=== PATIENT | female | born 1990 | race Caucasian/White ===

== ENCOUNTER 2020-10-06 17:35 | Inpatient (IN) | payer OTHER ==
[2020-10-06 18:27] LABS: Appearance,Urine Clear (Clear); Bilirubin,Urine Negative (Negative); Blood,Urine Moderate (Negative); Color,Urine Colorless; Glucose,Urine (UA) Negative (Negative); Ketones,Urine Negative (Negative); Leukocyte Esterase,Urine Small (Negative); Mucus,Urine Rare /hpf; Nitrite,Urine Negative (Negative); PH, Urine 6.5 (5.0-8.0); Protein,Urine Trace (Negative); RBC,Urine 1 /hpf (0-5); Specific Gravity,Urine 1.003 (1.001-1.035); Squamous Epithelial Cell,Urine 3 /hpf (0-4); Urobilinogen,Urine <2.0 mg/dL (<2.0); WBC,Urine 1 /hpf (0-5)
[2020-10-06 18:39] LABS: Creatinine,Urine Random 14.6 mg/dL; Protein/Creatinine Ratio,Urine 2.808
[2020-10-06] MEDS ORDERED: TERBUTALINE 1 MG/ML VIAL SQ PRN (18:54)
[2020-10-06] MEDS ORDERED: CARBOPROST TROMETHAMINE 250 MCG/ML 1 ML AMP IM PRN (18:54)
[2020-10-06] MEDS ORDERED: METHYLERGONOVINE 0.2 MG/ML 1 ML AMP IM PRN (18:54)
[2020-10-06] MEDS ORDERED: LIDOCAINE 0.5% (PF) 5 MG/ML (50 ML SDV) SQ PRN (18:54)
[2020-10-06] MEDS ORDERED: OXYTOCIN 10 UNIT/ML 1 ML VIAL IM PRN (18:54)
[2020-10-06] MEDS ORDERED: OXYTOCIN 30 UNITS/500 ML NS 30 UNIT in SALINE 1 500ML.BAG IV SCH (19:00)
[2020-10-06 19:06] LABS: Basophils % (A) 0 %; Eosinophils # (A) 0.1 k/uL (0-0.7); Eosinophils % (A) 2 %; HCT 36.9 % (34.0-46.0); HGB 12.9 gm/dL (11.4-16.0); Lymphocytes # (A) 1.9 k/uL (1.0-4.8); Lymphocytes % (A) 21 %; MCH 32.4 pg (25.0-35.0); MCHC 35.1 g/dL (31.0-37.0); MCV 92.3 fL (80.0-100.0); Mean Platelet Volume 8.2; Monocytes # (A) 0.5 k/uL (0-1.0); Monocytes % (A) 6 %; Neutrophils # (A) 6.5 k/uL (1.3-7.7); Neutrophils % (A) 69 %; Platelet Count 186 k/uL (150-450); RDW 13.4 % (11.5-15.5); WBC 9.4 k/uL (3.8-10.6)
[2020-10-06 19:11] LABS: ALT 16 U/L (4-34); AST 26 U/L (14-36); African American GFR (CKD) >90 (>60 ml/min/1.73 sqM); Blood Urea Nitrogen 11 mg/dL (7-17); LDH 603 U/L (313-618); Non-African American GFR(CKD) >90 (>60 ml/min/1.73 sqM); Uric Acid 6.1 mg/dL (3.7-7.4)
--- NOTE | 2020-10-06 19:45 | US ---
EXAMINATION TYPE: US OB limited DATE OF EXAM: 10/06/2020 COMPARISON: NONE CLINICAL HISTORY: PIH. PIH. LUAN and presentation only. . EXAM PERFORMED: Transabdominal (TA) GESTATIONAL AGE / DATING Physician Established: (36 weeks/2 days) EDC: 11/01/2020 No growth performed on today?s study per ordering physician SURVEY LUAN: 11.68 cm Normal Ultrasound evidence of premature rupture of membranes? No PRESENTATION: Vertex LIE: Longitudinal HEART RATE: 142 bpm RHYTHM: Normal Single live intrauterine gestation. Calculated amniotic fluid index is within normal limits. Normal c ephalad presentation noted. IMPRESSION: As above.
[2020-10-07] MEDS: LACTATED RINGERS 1,000 ML IV SCH ×2 (00:05→08:08)
[2020-10-07] MEDS: CLINDAMYCIN 900 MG in DEXTROSE 5% IN WATER 50 ML IVPB SCH ×6 (00:05→17:06)
--- NOTE | 2020-10-07 08:33 | P.HPOB ---
History of Present Illness H&P Date: 10/07/20 Chief Complaint: IUP @ 36 4/7 weeks This is a 30-year-old 1 para 0 at 36-4/7 weeks that presented to the office yesterday with noted elevated blood pressures 140s over high 90s, with increased through plus lower cavity swelling. Patient did deny headaches or abdominal pain. She had a prior elevated blood pressure 2 weeks prior 140s over 90s. Patient had preeclampsia labs at that time that were negative. Patient was sent to the hospital where her elevated blood pressures remained 140s 150s over 90s. Patient underwent preeclampsia labs once again which were normal a spot protein creatinine ratio was 2.8, significantly elevated. Patient has been receiving routine care, and is dated by a first trimester ultrasound that was done at the care center. Her blood type is A+, rubella status immune, RPR nonreactive, B surface antigen negative, HIV negative. Review of Systems Constitutional: Denies chills, Denies fatigue, Denies fever Ears, nose, mouth and throat: Denies headache Cardiovascular: Reports leg edema Respiratory: Denies dyspnea Gastrointestinal: Denies nausea, Denies vomiting Genitourinary: Reports Past Medical History Past Medical History: No Reported History History of Any Multi-Drug Resistant Organisms: None Reported Past Surgical History: Orthopedic Surgery Additional Past Surgical History / Comment(s): left lower leg surgery 2011 Past Anesthesia/Blood Transfusion Reactions: No Reported Reaction Past Psychological History: Depression Smoking Status: Never smoker Past Alcohol Use History: None Reported Past Drug Use History: Marijuana Additional Drug Use History / Comment(s): before - Past Family History Mother Family Medical History: No Reported History Medications and Allergies Home Medications Medication Instructions Recorded Confirmed Type Pnv No.95/Ferrous Fum/Folic AC 1 each PO DAILY 10/06/20 10/06/20 History [ Multivitamin Tablet] Allergies Allergy/AdvReac Type Severity Reaction Status Date / Time latex Allergy Rash/Hives Verified 10/06/20 17:43 Penicillins Allergy Rash/Hives Verified 10/06/20 17:43 codeine AdvReac Nausea & Verified 10/06/20 17:43 Vomiting Exam Osteopathic Statement: *. No significant issues noted on an osteopathic str uctural exam other than those noted in the History and Physical/Consult. 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 Results Result Diagrams: 10/06/20 18:43 10/06/20 18:43 Abnormal Lab Results - Last 24 Hours (Table) 10/06/20 10/06/20 Range/Units 17:41 17:41 Urine Protein Trace H (Negative) Urine Blood Moderate H (Negative) Ur Leukocyte Esterase Small H (Negative) Urine Mucus Rare H (None) /hpf U Random Total Protein 42 H (<12) mg/dL Assessment and Plan (1) 36 weeks gestation of Current Visit: Yes Status: Acute Code(s): Z3A.36 - 36 WEEKS GESTATION OF SNOMED Code(s): 44445077 (2) Preeclampsia Current Visit: Yes Status: Acute Code(s): O14.90 - UNSPECIFIED PRE-ECLAM PSIA, UNSPECIFIED TRIMESTER SNOMED Code(s): 947445205 Plan: This 30-year-old at 36-4/7 weeks presented to labor and delivery from the office with noted elevated blood pressures and increased lower extremity swelling. Preeclampsia labs were noted to be negative although uric acid was elevated from previous lab draw. Spot protein urine creatinine ratio was significantly elevated. Patient was admitted last night for planned induction of labor. Blood pressures remained stable through the night 140s over 90s. Pitocin induction of labor was begun around 5 AM. We'll monitor blood pressures closely, and anticipate spontaneous vaginal delivery.
[2020-10-07] MEDS ORDERED: SODIUM CHLORIDE 0.9% 100 ML BAG ONE (11:16)
[2020-10-07] MEDS ORDERED: ROPIVACAINE 5MG/ML 20ML VIAL ONE (11:16)
[2020-10-07] MEDS ORDERED: fentaNYL (PF) 50 MCG/ML 5 ML AMP ONE (11:16)
[2020-10-07] MEDS ORDERED: ROPIVACAINE 100 MG, fentaNYL (PF) 200 MCG in SODIUM CHLORIDE 0.9% 76 ML EPIDURAL ONE (11:36)
[2020-10-07] MEDS ORDERED: ZOLPIDEM 5 MG TAB PO PRN (13:52)
[2020-10-07] MEDS ORDERED: HYDROcodone/APAP 5-325MG 1 EACH TAB PO PRN (13:52)
[2020-10-07] MEDS ORDERED: BENZOCAINE/MENTHOL SPRAY 1 GM/SPRAY AEROSOL TOPICAL PRN (13:52)
[2020-10-07] MEDS ORDERED: diphenhydrAMINE 25 MG CAP PO PRN (13:52)
[2020-10-07] MEDS ORDERED: diphenhydrAMINE 50 MG CAP PO PRN (13:52)
[2020-10-07] MEDS ORDERED: LANOLIN CREAM 5 GM TUBE TOPICAL PRN (13:52)
[2020-10-07] MEDS ORDERED: diphenhydrAMINE 50 MG/ML 1 ML VIAL IVP PRN ×2 (13:52)
[2020-10-07] MEDS ORDERED: HYDROCORTISONE 2.5% RECTAL CREAM 30 GM TUBE RECTAL PRN (13:52)
[2020-10-07] MEDS ORDERED: SIMETHICONE 80 MG CHEWABLE PO PRN (13:52)
--- NOTE | 2020-10-07 13:56 | P.PROBDLV ---
Vaginal Delivery Note - . Vaginal Delivery Note: This is a 30-year-old 1 para 0 that presented to labor and delivery from the office yesterday with noted elevated pressures at 36-3/7 weeks. Patient had noted increased lower extremity swelling, preeclampsia labs were done and essentially normal with the exception of an elevated uric acid at 6, urine protein creatinine ratio was significantly elevated in addition. Patient was admitted to labor and delivery. Pitocin induction of labor was begun this morning as her blood pressures were stable through the night and she did sleep well. Pitocin induction was begun per hospital protocol. Patient was noted to be having regular contractions therefore amniotomy was performed and clear fluid was obtained. Patient progressed through labor eventually becoming uncomfortable and requesting epidural placement. Epidural was placed without difficulty by the anesthesia department. Patient then progressed to complete began pushing and had a normal spontaneous vaginal delivery of a viable male at 1330, weight of 6 lbs. 13 oz. and Apgars of 9 and 10 at one and 5 minutes respectively. After two-minute delayed the umbilical cord was doubly clamped and cut and the infant was handed off to the maternal abdomen. A spontaneous cry was noted at . On inspection the patient's vaginal vault a second-degree midline laceration was noted. This was repaired in the usual fashion with 3-0 Rapide. Patient tolerated repair well and hemostasis was appre ciated. Uterus was noted be firm and below the umbilicus after the repair. Estimated blood loss 200 mL. All counts were noted to be correct 2 at the end the procedure. Patient and tolerated delivery well and are resting complete.
[2020-10-07] MEDS ORDERED: OXYTOCIN 20 UNITS/1000 ML NS 1,000 ML IV SCH (14:00)
[2020-10-07] MEDS: IBUPROFEN 600 MG TAB PO PRN (17:07)
[2020-10-07] MEDS: SENNOSIDES-DOCUSATE SODIUM 1 EACH TAB PO SCH (19:50)
[2020-10-07] MEDS: LABETALOL 100 MG TAB PO SCH (21:24)
[2020-10-08] MEDS: IBUPROFEN 600 MG TAB PO PRN ×3 (04:14→18:04)
[2020-10-08] MEDS: ACETAMINOPHEN TAB 325 MG TAB PO PRN ×2 (08:07→16:02)
[2020-10-08] MEDS: LABETALOL 100 MG TAB PO SCH ×2 (08:08→21:12)
[2020-10-08] MEDS: SENNOSIDES-DOCUSATE SODIUM 1 EACH TAB PO SCH ×2 (08:08→21:15)
[2020-10-08] MEDS: PRENATAL VIT-IRON-FOLIC ACID 1 EACH CAP PO SCH (08:08)
--- NOTE | 2020-10-08 08:23 | P.PNOBGVD ---
Subjective - Subjective Principal diagnosis: PPD 1 Interval history: Patient is doing well. She is involuting and voiding without difficulty. She is tolerating a regular diet without nausea or vomiting. She is tolerating labetalol 100 mg twice daily well. Blood pressures 130s over 90s this morning. She denies headache or abdominal pain. Patient reports: Reports appetite normal, Reports voiding normally, Reports pain well controlled, Reports ambulating normally : doing well Objective - Latest Vital Signs Latest vital signs: Vital Signs Temp Pulse Resp BP Pulse Ox 10/08/20 04:00 98.0 F 88 16 115/76 98 10/07/20 23:33 98.0 F 103 H 17 119/81 98 10/07/20 20:00 98.3 F 119 H 17 141/89 98 10/07/20 18:08 85 16 148/91 10/07/20 16:00 106 H 16 149/89 10/07/20 15:45 97.6 F 111 H 16 147/90 10/07/20 15:15 120 H 16 149/77 10/07/20 14:45 98.0 F 123 H 16 154/86 10/07/20 14:30 104 H 16 146/94 10/07/20 14:15 97.0 F L 104 H 16 146/93 10/07/20 14:00 120 H 18 146/86 10/07/20 13:45 131 H 18 159/92 Intake and Output 10/07/20 10/08/20 10/08/20 22:59 06:59 14:59 Other: # Voids 1 1 - Exam Extremities: Present: normal, edema Abdomen: Present: normal appearance, soft Uterus: Present: normal, firm Assessment and Plan (1) 36 weeks gestation of Current Visit: Yes Status: Acute Code(s): Z3A.36 - 36 WEEKS GESTATION OF SNOMED Code(s): 51940627 (2) Preeclampsia Current Visit: Yes Status: Acute Code(s): O14.90 - UNSPECIFIED PRE- ECLAMPSIA, UNSPECIFIED TRIMESTER SNOMED Code(s): 467023371 (3) Status post vaginal delivery Current Visit: Yes Status: Acute Code(s): NYM5711 - SNOMED Code(s): 787685905 (4) Obstetric vaginal laceration with second degree perineal laceration Current Visit: Yes Status: Acute Code(s): O70.1 - SECOND DEGREE PERINEAL LACERATION DURING DELIVERY SNOMED Code(s): 049024445 Plan: Patient is doing well . We'll continue to monitor blood pressures/was placed on labetalol last evening. Increased ambulation today. Anticipate discharge home to her morning.
[2020-10-08 17:26] LABS: Basophils # (A) 0.1 k/uL (0-0.2); Basophils % (A) 1 %; Eosinophils # (A) 0.1 k/uL (0-0.7); Eosinophils % (A) 1 %; HCT 28.7 % (34.0-46.0); HGB 10.1 gm/dL (11.4-16.0); Lymphocytes # (A) 1.9 k/uL (1.0-4.8); Lymphocytes % (A) 18 %; MCH 32.7 pg (25.0-35.0); MCHC 35.2 g/dL (31.0-37.0); MCV 92.8 fL (80.0-100.0); Mean Platelet Volume 8.1; Monocytes # (A) 0.5 k/uL (0-1.0); Monocytes % (A) 5 %; Neutrophils # (A) 7.6 k/uL (1.3-7.7); Neutrophils % (A) 73 %; Platelet Count 155 k/uL (150-450); RDW 13.2 % (11.5-15.5); WBC 10.4 k/uL (3.8-10.6)
[2020-10-08 17:40] LABS: Uric Acid 6.2 mg/dL (3.7-7.4)
[2020-10-09 00:14] VITALS: RESP 16
[2020-10-09] MEDS: IBUPROFEN 600 MG TAB PO PRN ×2 (03:14→09:10)
[2020-10-09] MEDS: SENNOSIDES-DOCUSATE SODIUM 1 EACH TAB PO SCH (07:38)
[2020-10-09] MEDS: PRENATAL VIT-IRON-FOLIC ACID 1 EACH CAP PO SCH (07:39)
[2020-10-09 08:30] VITALS: BP 126/83; PULSE 90; TEMP 98
[2020-10-09] MEDS: LABETALOL 100 MG TAB PO SCH (09:10)
--- NOTE | 2020-10-09 09:14 | P.DS ---
Providers Date of admission: 10/06/20 18:48 Expected date of discharge: 10/09/20 Attending physician: Adelaide Dean Primary care physician: Stated None - Discharge Diagnosis(es) (1) 36 weeks gestation of Current Visit: Yes Status: Acute (2) Preeclampsia Current Visit: Yes Status: Acute (3) Status post vaginal delivery Current Visit: Yes Status: Acute (4) Obstetric vaginal laceration with second degree perineal laceration Current Visit: Yes Status: Acute Hospital Course: this is a 30-year-old 1 para 0 that presented to the office at 36-3/7 weeks with noted elevated pressures. Blood pressures noted to be 140s over 90s. Patient denied signs of preeclampsia at that time such as headache abdominal pain patient did have significantly increased lower remedies swelling. Patient underwent preeclampsia lab work which was essentially normal with the exception of an elevated uric acid and a urine protein creatinine ratio significantly elevated at 2.8. Patient was admitted for induction of labor secondary to preeclampsia. Blood pressures remained 140s to 150s over 90s. Patient was begun on Pitocin for induction of labor. Amniotomy was performed and clear fluid was obtained. Patient progressed through labor becoming uncomfortable and did request epidural placement. Soon after epidural was placed patient was noted to be complete she began pushing and had a normal spontaneous vaginal delivery of a viable male infant at 1330, weight of 6 lbs. 13 oz., Apgars of 9 and 10 at one and 5 minutes respect daily. Patient is sustain a second degree vaginal laceration which was repaired in usual fashion after delivery. Patient's course has been essentially uneventful. Patient was begun on labetalol 100 mg twice daily for blood pressure management. This has controlled her blood pressures while keeping them 140s over 90s. Patient is stable for discharge home Patient Condition at Discharge: Good Plan - Discharge Summary New Discharge Prescriptions: No Action Pnv No.95/Ferrous Fum/Folic AC [ Multivitamin Tablet] 1 each PO DAILY Discharge Medication List Pnv No.95/Ferrous Fum/Folic AC [ Multivitamin Tablet] 1 each PO DAILY 10/06/20 [History] Follow up Appointment(s)/Referral(s): Adelaide Dean DO [Doctor of Osteopathic Medicine] - 1 Week Patient Instructions/Handouts: Vaginal Delivery (GEN), Vaginal Delivery (DC) Activity/Diet/Wound Care/Special Instructions: patient is to continue taking labetalol 100 mg twice daily and follow up next week for blood pressure check in the office. [id number] Motrin 600 mg as needed for discomfort. Discharge Disposition: HOME SELF-CARE
== END 2020-10-09 12:05 | disposition home or self-care (01) | DRG 807 ==
LOC: FBPOP 17:35 → 4FBP 18:48
PROVIDERS: ADMIT Obstetrics & Gynecology Obstetrics; ATTEND Obstetrics & Gynecology Obstetrics
DX: O14.94 Unspecified pre-eclampsia, complicating childbirth (principal); Z37.0 Single live birth; O70.1 Second degree perineal laceration during delivery; Z3A.36 36 weeks gestation of pregnancy; Z86.59 Personal history of other mental and behavioral disorders
CPT/HCPCS: 59025; 76815; 81001; 82565; 82570; 83615; 84156; 84450; 84460; 84520; 84550; 85025; 86850; 86900; 86901; 88307; 99215

== ENCOUNTER 2021-05-03 15:45 | Emergency (ER) | payer OTHER ==
[2021-05-03 15:51] VITALS: TEMP 97.5
--- NOTE | 2021-05-03 16:26 | ED ---
Lower Extremity Injury HPI - General Chief Complaint: Extremity Injury, Lower Stated Complaint: Bilateral Knee Pain Time Seen by Provider: 05/03/21 15:56 Source: patient Mode of arrival: wheelchair Limitations: no limitations - History of Present Illness Initial Comments: 30-year-old female presents to emergency Department with a chief complaint of leg pain. Patient reports about 4 days ago she developed bilateral knee pain after she went for a running concrete. Patient reports she had been trying to get back in shape and this was her first run in quite some time. Patient reports she didn't gradually developing increased bilateral knee pain. States she went to an urgent care but had no imaging performed. She states the discharge her with topical lidocaine cream and steroids with no significant improvement in symptoms. States she has not planks and compresses which are not improving her symptoms. She denies any swelling in the knees aren't erythematous or ecchymotic changes. Denies any paresthesias but states the pain is exacerbated with ambulation and alleviated at rest. 5/10, sharp. - Related Data Home Medications Medication Instructions Recorded Confirmed Pnv No.95/Ferrous Fum/Folic AC 1 each PO DAILY 10/06/20 10/06/20 [ Multivitamin Tablet] Allergies Allergy/AdvReac Type Severity Reaction Status Date / Time latex Allergy Rash/Hives Verified 05/03/21 15:51 Penicillins Allergy Rash/Hives Verified 05/03/21 15:51 codeine AdvReac Nausea & Verified 05/03/21 15:51 Vomiting Review of Systems ROS Statement: Those systems with pertinent positive or pertinent negative responses have been documented in the HPI. ROS Other: All systems not noted in ROS Statement are negative. Past Medical History Past Medical History: No Reported History History of Any Multi-Drug Resistant Organisms: None Reported Past Surgical History: Orthopedic Surgery Additional Past Surgical History / Comment(s): left lower leg surgery 2010 Past Anesthesia/Blood Transfusion Reactions: No Reported Reaction Past Psychological History: Depression Smoking Status: Never smoker Past Alcohol Use History: None Reported Past Drug Use History: Marijuana - Past Family History Mother Family Medical History: No Reported History General Exam Limitations: no limitations General appearance: alert, in no apparent distress, obese Head exam: Present: atraumatic, normocephalic, normal inspection Eye exam: Present: normal appearance, PERRL, EOMI Pupils: Present: normal accommodation ENT exam: Present: normal exam, normal oropharynx, mucous membranes moist Neck exam: Present: normal inspection, full ROM. Absent: tenderness, lymphadenopathy Respiratory exam: Present: normal lung sounds bilaterally. Absent: respiratory distress, wheezes, rales, rhonchi, stridor, chest wall tenderness Cardiovascular Exam: Present: regular rate, normal rhythm, normal heart sounds. Absent: systolic murmur Extremities exam: Present: normal inspection, full ROM, tenderness (Bilateral infrapatellar medial knee tenderness), normal capillary refill, other (Palpable DP and PT bilaterally. Sensation intact in bilateral lower extremities). Absent: pedal edema, joint swelling, calf tenderness Back exam: Present: normal inspection, full ROM. Absent: tenderness Neurological exam: Present: alert, oriented X3 Psychiatric exam: Present: normal affect, normal mood Skin exam: Present: warm, dry, intact, normal color Course Vital Signs 05/03/21 15:47 Temperature 97.5 F L Pulse Rate 86 Respiratory 20 Rate Blood Pressure 130/79 O2 Sat by Pulse 100 Oximetry Medical Decision Making - Medical Decision Making 30-year-old female presents to emergency Department with a chief complaint of leg pain. Physical examination is unremarkable. X-ray shows no acute findings. I did recommend applying Chang wrap, patient declined. I advised to follow-up with patient relations specialist. Rest, ice, compression and elevation. No calf pain or leg swelling. no chest pain or shortness of breath. Return parameters discussed the patient is an attending agreeable. Case discussed with Disposition Clinical Impression: Bilateral knee pain Disposition: HOME SELF-CARE Condition: Stable Instructions (If sedation given, give patient instructions): Knee Pain (ED) Additional Instructions: Follow-up with patient relations specialist. Return to emergency department if symptoms worsen. Is patient prescribed a controlled substance at d/c from ED?: No Referrals: Calvin Young MD [Primary Care Provider] - 1-2 days Jeremiah Raymond DO [Doctor of Osteopathic Medicine] - 1-2 days Time of Disposition: 16:43
--- NOTE | 2021-05-03 16:28 | XR ---
EXAMINATION TYPE: XR knee complete bilateral DATE OF EXAM: 05/03/2021 CLINICAL HISTORY: pain TECHNIQUE: Three views of the right knee are obtained. COMPARISON: None. FINDINGS: There is no acute fracture/dislocation. The tri-compartment joint spaces appear within no rmal limits. The overlying soft tissue appears unremarkable. IMPRESSION: There is no acute fracture or dislocation.ICD 10 NO FRACTURE, INITIAL EVALUATION EXAMINATION TYPE: XR knee complete bilateral DATE OF EXAM: 05/03/2021 CLINICAL HISTORY: pain TECHNIQUE: Three views of the left knee are obtained. COMPARISON: None. FINDINGS: There is no acute fracture/dislocation. The tri-compartment joint spaces appear within no rmal limits. The overlying soft tissue appears unremarkable. Postoperative changes left tibia. IMPRESSION: There is no acute fracture or dislocation ICD 10 NO FRACTURE, INITIAL EVALUATION
[2021-05-03 16:51] VITALS: BP 140/95; PULSE 81; RESP 22
== END 2021-05-03 17:03 | disposition home or self-care (01) ==
LOC: EC 15:45
DX: M25.561 Pain in right knee (principal); M25.562 Pain in left knee; Z91.040 Latex allergy status; Z88.0 Allergy status to penicillin; Z88.5 Allergy status to narcotic agent
CPT/HCPCS: 99283

== ENCOUNTER → 2021-05-28 | Outpatient (CLI) | payer OTHER ==
--- NOTE | 2021-05-28 10:59 | MR ---
EXAMINATION TYPE: MR knee RT wo con DATE OF EXAM: 05/28/2021 COMPARISON: X-ray 05/03/2021 HISTORY: Pain in right knee TECHNIQUE: Multiplanar, multisequence imaging of the right knee is performed without IV contrast. FINDINGS: There is a mild residual edema within proximal medial tibia. There is a fracture line through the met aphysis of the medial margin of the tibia transversely oriented. Medial collateral and lateral collateral ligaments are intact. Anterior cruciate and posterior crucia te ligaments intact. Patellar and quadriceps tendons intact. Retinaculum intact. There is a trace amount of fluid in the s uprapatellar bursa. No evidence of meniscal tear. Cartilage appears to be preserved. Linear signal within the posterior h orn the medial meniscus most typical of myxoid degeneration. Report was called to the referring clini [email or web address] 10:54 AM 05/28/2021. IMPRESSION: 1. Fracture through the medial margin of the metaphysis of the tibia transversely oriented. Mild resi dual marrow edema. 2. Linear signal posterior horn medial meniscus with no definite intra-articular extension. 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
== END | disposition home or self-care (01) ==
LOC: RADMRIMAIN 09:47
PROVIDERS: ATTEND Orthopaedic Surgery Sports Medicine
DX: S82.101A Unspecified fracture of upper end of right tibia, initial encounter for closed fracture (principal); X58.XXXA Exposure to other specified factors, initial encounter

== ENCOUNTER → 2021-06-04 | Outpatient (CLI) | payer OTHER ==
[2021-06-04 22:11] LABS: Albumin 4.4 g/dL (3.80-4.90)
== END | disposition home or self-care (01) ==
LOC: LABWHC1 08:55
PROVIDERS: ATTEND Physician Assistant
DX: M23.8X2 Other internal derangements of left knee (principal); M25.561 Pain in right knee
CPT/HCPCS: 36415; 82040; 82306; 82672; 83970; 84134; 84403

== ENCOUNTER 2021-10-11 01:18 | Observation (INO) | payer OTHER ==
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
[2021-10-11 04:39] LABS: Appearance,Urine Clear (Clear); Bilirubin,Urine Negative (Negative); Blood,Urine Negative (Negative); Color,Urine Yellow; Glucose,Urine (UA) Negative (Negative); Ketones,Urine 2+ (Negative); Leukocyte Esterase,Urine Trace (Negative); Mucus,Urine Occasional /hpf; Nitrite,Urine Negative (Negative); PH, Urine 6.5 (5.0-8.0); Protein,Urine Trace (Negative); RBC,Urine <1 /hpf (0-5); Squamous Epithelial Cell,Urine 2 /hpf (0-4); Urobilinogen,Urine <2.0 mg/dL (<2.0); WBC,Urine 2 /hpf (0-5)
[2021-10-11 04:48] LABS: Amphetamine Screen,Urine Not Detected (NotDetected); Barbiturate Screen,Urine Not Detected (NotDetected); Benzodiazepines Screen,Urine Not Detected (NotDetected); Cocaine Screen,Urine Not Detected (NotDetected); Methadone Screen, Urine Not Detected (NotDetected); Opiate Screen,Urine Not Detected (NotDetected); Oxycodone Screen, Urine Not Detected (NotDetected); Phencyclidine Screen,Urine Not Detected (NotDetected); Tricyclic Antidepressant,Urine Not Detected (NotDetected); Urn Cannabinoid Scrn Detected (NotDetected)
[2021-10-11 05:20] LABS: Basophils # (A) 0.1 k/uL (0-0.2); Basophils % (A) 1 %; Eosinophils # (A) 0.1 k/uL (0-0.7); Eosinophils % (A) 1 %; HCT 41.1 % (34.0-46.0); HGB 14.4 gm/dL (11.4-16.0); Lymphocytes % (A) 19 %; MCH 30.2 pg (25.0-35.0); MCV 86.2 fL (80.0-100.0); Mean Platelet Volume 7.2; Monocytes # (A) 0.4 k/uL (0-1.0); Monocytes % (A) 4 %; Neutrophils # (A) 7.9 k/uL (1.3-7.7); Neutrophils % (A) 75 %; Platelet Count 231 k/uL (150-450); RBC 4.77 m/uL (3.80-5.40); RDW 13.1 % (11.5-15.5); WBC 10.6 k/uL (3.8-10.6)
[2021-10-11 05:41] LABS: ALT 15 U/L (4-34); AST 20 U/L (14-36); African American GFR (CKD) >90 (>60 ml/min/1.73 sqM); Albumin 4.6 g/dL (3.5-5.0); Alkaline Phosphatase 111 U/L (38-126); Anion Gap 11 mmol/L; Blood Urea Nitrogen 8 mg/dL (7-17); Calcium 9.6 mg/dL (8.4-10.2); Carbon Dioxide 21 mmol/L (22-30); Chloride 105 mmol/L (98-107); Glucose 109 mg/dL (74-99); Non-African American GFR(CKD) >90 (>60 ml/min/1.73 sqM); Sodium 137 mmol/L (137-145); Total Bilirubin 0.8 mg/dL (0.2-1.3); Total Protein 7.8 g/dL (6.3-8.2)
[2021-10-11] MEDS ORDERED: LORazepam 2 MG/ML INJ IM PRN (06:17)
[2021-10-11] MEDS ORDERED: SERTRALINE 50 MG TAB PO STA (14:24)
[2021-10-11] MEDS ORDERED: ACETAMINOPHEN TAB 325 MG TAB PO PRN (15:36)
[2021-10-11] MEDS ORDERED: NALOXONE 0.4 MG/ML 1 ML VIAL IV PRN (15:36)
--- NOTE | 2021-10-11 17:49 | P.HPIM ---
History of Present Illness Patient is a pleasant 31-year-old female came in because of possible suicidal ideations and patient was quite a bit depressed and she believes that her sertraline dosage to be increased. Patient has been on this dose for a while. Patient is bit tearful. Although denied any present suicidal ideations. Patient was diagnosed with COVID-19 on september her symptoms resolved last . Patient is asymptomatic regarding coronary and will not require any steroids at this time. Patient is being admitted to medical floor as a mental health unit cannot accommodate positive Covid patient's. Although patient is probably not infectious at this time. Her Covid PCR is expected to be positive even if she is not infective. REVIEW OF SYSTEMS: CONSTITUTIONAL: No fever, no malaise, no fatigue. HEENT: No recent visual problems or hearing problems. Denied any sore throat. CARDIOVASCULAR: No chest pain, orthopnea, PND, no palpitations, no syncope. PULMONARY: No shortness of breath, no cough, no hemoptysis. GASTROINTESTINAL: No diarrhea, no nausea, no vomiting, no abdominal pain. NEUROLOGICAL: No headaches, no weakness, no numbness. HEMATOLOGICAL: Denies any bleeding or petechiae. GENITOURINARY: Denies any burning micturition, frequency, or urgency. MUSCULOSKELETAL/RHEUMATOLOGICAL: Denies any joint pain, swelling, or any muscle pain. ENDOCRINE: Denies any polyuria or polydipsia. The rest of the 14-point review of systems is negative. PHYSICAL EXAMINATION: GENERAL: The patient is alert and oriented x3, not in any acute distress. Well developed, well nourished. HEENT: Pupils are round and equally reacting to light. EOMI. No scleral icterus. No conjunctival pallor. Normocephalic, atraumatic. No pharyngeal erythema. No thyromegaly. CARDIOVASCULAR: S1 and S2 present. No murmurs, rubs, or gallops. PULMONARY: Chest is clear to auscultation, no wheezing or crackles. ABDOMEN: Soft, nontender, nondistended, normoactive bowel sounds. No palpable organomegaly. MUSCULOSKELETAL: No joint swelling or deformity. EXTREMITIES: No cyanosis, clubbing, or pedal edema. NEUROLOGICAL: Gross neurological examination did not reveal any focal deficits. SKIN: No rashes. Assessment and plan Depression and suicidal ideation: Psychiatry was consulted further management as per them until then patient will have a sitter at this time -Asymptomatic Covid patient will be started on code vitamins beyond which patient will not need any further treatment patient is probably not infectious at this time as the her Covid had symptoms of Covid about 12 days ago DVT prophylaxis: Past Medical History Past Medical History: No Reported History History of Any Multi-Drug Resistant Organisms: None Reported Past Surgical History: Orthopedic Surgery Additional Past Surgical History / Comment(s): left lower leg surgery 2011 Past Anesthesia/Blood Transfusion Reactions: No Reported Reaction Past Psychological History: Depression Smoking Status: Never smoker Past Alcohol Use History: None Reported Past Drug Use History: Marijuana - Past Family History Mother Family Medical History: No Reported History Medications and Allergies Home Medications Medication Instructions Recorded Confirmed Type Sertraline [Zoloft] 50 mg PO DAILY 10/11/21 10/11/21 History Allergies Allergy/AdvReac Type Severity Reaction Status Date / Time latex Allergy Rash/Hives Verified 10/11/21 07:27 Penicillins Allergy Rash/Hives Verified 10/11/21 07:27 codeine AdvReac Nausea & Verified 10/11/21 07:27 Vomiting Physical Exam Vitals: Vital Signs Temp Pulse Resp BP Pulse Ox 10/11/21 17:24 98 F 78 16 121/78 97 10/11/21 07:40 98.2 F 79 16 121/73 98 10/11/21 06:00 20 10/11/21 04:00 18 10/11/21 01:25 98.2 F 105 H 22 122/87 98 Intake and Output 10/11/21 10/11/21 10/11/21 06:59 14:59 22:59 Other: Weight 72.575 kg Results CBC & Chem 7: 10/11/21 05:08 10/11/21 05:08 Labs: Abnormal Lab Results - Last 24 Hours (Table) 10/11/21 10/11/21 10/11/21 Range/Units 04:33 04:33 04:33 Neutrophils # (1.3-7.7) k/uL Carbon Dioxide (22-30) mmol/L Glucose (74-99) mg/dL Urine Protein Trace H (Negative) Urine Ketones 2+ H (Negative) Ur Leukocyte Esterase Trace H (Negative) Urine Mucus Occasional H (None) /hpf U Marijuana (THC) Screen Detected H (NotDetected) Coronavirus (PCR) Detected A (Not Detectd) 10/11/21 10/11/21 Range/Units 05:08 05:08 Neutrophils # 7.9 H (1.3-7.7) k/uL Carbon Dioxide 21 L (22-30) mmol/L Glucose 109 H (74-99) mg/dL Urine Protein (Negative) Urine Ketones (Negative) Ur Leukocyte Esterase (Negative) Urine Mucus (None) /hpf U Marijuana (THC) Screen (NotDetected) Coronavirus (PCR) (Not Detectd)
[2021-10-11] MEDS: SERTRALINE 50 MG TAB PO SCH (18:17)
[2021-10-11] MEDS: ASCORBIC ACID 500 MG TAB PO SCH (20:53)
[2021-10-11] MEDS ORDERED: ASCORBIC ACID 500 MG TAB PO SCH (21:00)
[2021-10-12] MEDS: ASCORBIC ACID 500 MG TAB PO SCH ×2 (07:49→19:43)
[2021-10-12] MEDS: ZINC SULFATE 220 MG CAP PO SCH (07:49)
[2021-10-12] MEDS: SERTRALINE 50 MG TAB PO SCH (07:49)
[2021-10-12] MEDS ORDERED: haloperidoL 5 MG TAB PO PRN (14:41)
[2021-10-12] MEDS ORDERED: LORazepam 1 MG TAB PO PRN (14:41)
[2021-10-12] MEDS ORDERED: LORazepam 2 MG/ML INJ IM PRN (14:41)
[2021-10-12] MEDS ORDERED: SERTRALINE 50 MG TAB PO STA (14:41)
[2021-10-12] MEDS ORDERED: HALOPERIDOL LACTATE 5 MG/ML 1 ML VIAL IM PRN (14:41)
[2021-10-12] MEDS ORDERED: traZODone HCL 50 MG TAB PO PRN (14:42)
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
--- NOTE | 2021-10-12 15:19 | P.PN ---
Subjective Progress Note Date: 10/12/21 Patient is a pleasant 31-year-old female came in because of possible suicidal ideations and patient was quite a bit depressed and she believes that her sertraline dosage to be increased. Patient has been on this dose for a while. Patient is bit tearful. Although denied any present suicidal ideations. Ashly hardin was diagnosed with COVID-19 on september her symptoms resolved last . Patient is asymptomatic regarding coronary and will not require any steroids at this time. Patient is being admitted to medical floor as a mental health unit cannot accommodate positive Covid patient's. Although patient is probably not infectious at this time. Her Covid PCR is expected to be positive even if she is not infective. 10/12/2021 Patient denies suicidal ideation during my examination. She feels that her current mental status is situational and she would ultimately an increase in her antidepressant medication. She was evaluated by psychiatry services today who did increase her zoloft to 100 mg daily, as well as recommends inpatient psychiatric admission, however she is unable for admission due to positive COVID PCR. Psychiatry is recommending patient to medical floor until she is cleared for discharge from psychiatry will follow-up daily. Added Haldol and Ativan for agitation and anxiety trazodone at bedtime for insomnia. Continue one-to-one sitter for safety. Patient was petitioned by police, the patient may not leave AMA at this time as recommended by psychiatry. Vital signs stable today; afebrile, BP 109/73, 97% on room air. ROS Constitutional: Denied any fatigue denied any fever. Cardio vascular: denied any chest pain, palpitations Gastrointestinal denied any nausea vomiting Pulmonary: Denied any shortness of breath cough Neurologic denied any new focal deficits All inpatient medications were reviewed and appropriate changes in these medications as dictated in the interval history and assessment and plan. PHYSICAL EXAMINATION: GENERAL: The patient is alert and oriented x3, not in any acute distress. Well developed, well nourished. HEENT: Pupils are round and equally reacting to light. EOMI. No scleral icterus. No conjunctival pallor. Normocephalic, atraumatic. No pharyngeal erythema. No thyromegaly. CARDIOVASCULAR: S1 and S2 present. No murmurs, rubs, or gallops. PULMONARY: Chest is clear to auscultation, no wheezing or crackles. ABDOMEN: Soft, nontender, nondistended, normoactive bowel sounds. No palpable organomegaly. MUSCULOSKELETAL: No joint swelling or deformity. EXTREMITIES: No cyanosis, clubbing, or pedal edema. NEUROLOGICAL: Gross neurological examination did not reveal any focal deficits. SKIN: No rashes. Assessment and plan Assessment Major Depressive Disorder, recurrent, severe, no psychotic features Anxiety disorder, unspecified Depression Substance use disorder; marijuana, mild Asymptomatic Covid, symptoms begain about 12 days ago. DVT prophylaxis: Ambulation Plan Continue 1:1 sitter with suicide precautions Continue vitamins Psychiatry consultation Continue all other supportive care. Objective - Vital Signs Vital signs: Vital Signs Temp 98.3 F 10/12/21 14:00 Pulse 75 10/12/21 14:00 Resp 15 10/12/21 14:00 BP 109/73 10/12/21 14:00 Pulse Ox 97 10/12/21 14:00 Intake & Output 10/11/21 10/12/21 10/12/21 18:59 06:59 18:59 Weight 72.575 kg - Labs CBC & Chem 7: 10/11/21 05:08 10/11/21 05:08
[2021-10-13] MEDS: ASCORBIC ACID 500 MG TAB PO SCH ×2 (09:21→22:36)
[2021-10-13] MEDS: ZINC SULFATE 220 MG CAP PO SCH (09:22)
[2021-10-13] MEDS: SERTRALINE 100 MG TAB PO SCH (09:22)
--- NOTE | 2021-10-13 14:38 | P.PN ---
Subjective Progress Note Date: 10/13/21 Patient is a pleasant 31-year-old female came in because of possible suicidal ideations and patient was quite a bit depressed and she believes that her sertraline dosage to be increased. Patient has been on this dose for a while. Patient is bit tearful. Although denied any present suicidal ideations. Ashly hardin was diagnosed with COVID-19 on september her symptoms resolved last . Patient is asymptomatic regarding coronary and will not require any steroids at this time. Patient is being admitted to medical floor as a mental health unit cannot accommodate positive Covid patient's. Although patient is probably not infectious at this time. Her Covid PCR is expected to be positive even if she is not infective. 10/12/2021 Patient denies suicidal ideation during my examination. She feels that her current mental status is situational and she would ultimately an increase in her antidepressant medication. She was evaluated by psychiatry services today who did increase her zoloft to 100 mg daily, as well as recommends inpatient psychiatric admission, however she is unable for admission due to positive COVID PCR. Psychiatry is recommending patient to medical floor until she is cleared for discharge from psychiatry will follow-up daily. Added Haldol and Ativan for agitation and anxiety trazodone at bedtime for insomnia. Continue one-to-one sitter for safety. Patient was petitioned by police, the patient may not leave AMA at this time as recommended by psychiatry. Vital signs stable today; afebrile, BP 109/73, 97% on room air. 10/13/2021 Patient resting in bed. She is quite agitated that she is still hospitalized that she doesn't understand why, she states that the statements that she made were situational and anybody who knew the situation would understand why she said what she said. Currently her boyfriend and has left the house, she did have to give him a 30 day eviction notice. Her parents own the home, but do not live there. Currently her parents have her 1-year-old son however she is unsure and she states that the boyfriend would be able to get access to the son. She denies there being a safety issue however she states that there is conflict between her and her ex-boyfriend. Patient is not currently working, she states that her ex-boyfriend wanted her to be a [id number] mom and she felt like a loss of identity after becoming mother and suffered from depression. 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 Patient really does not seem to understand the severity of the statements that she made regards to her suicidal ideation. She states that she never had an intent and she would never follow through with the act. She will be pursuing therapy after discharge and feels that she has struggled with depression for so long that she thinks her coping mechanisms are ok. Pending reevaluation by Psychiatry services today. Sertraline increased 100 mg by mouth daily and continue with one-to-one sitter for now. ROS Constitutional: Denied any fatigue denied any fever. Cardio vascular: denied any chest pain, palpitations Gastrointestinal denied any nausea vomiting Pulmonary: Denied any shortness of breath cough Neurologic denied any new focal deficits All inpatient medications were reviewed and appropriate changes in these medications as dictated in the interval history and assessment and plan. PHYSICAL EXAMINATION: GENERAL: The patient is alert and oriented x3, not in any acute distress. Well developed, well nourished. HEENT: Pupils are round and equally reacting to light. EOMI. No scleral icterus. No conjunctival pallor. Normocephalic, atraumatic. No pharyngeal erythema. No thyromegaly. CARDIOVASCULAR: S1 and S2 present. No murmurs, rubs, or gallops. PULMONARY: Chest is clear to auscultation, no wheezing or crackles. ABDOMEN: Soft, nontender, nondistended, normoactive bowel sounds. No palpable organomegaly. MUSCULOSKELETAL: No joint swelling or deformity. EXTREMITIES: No cyanosis, clubbing, or pedal edema. NEUROLOGICAL: Gross neurological examination did not reveal any focal deficits. SKIN: No rashes. Assessment and plan Assessment Major Depressive Disorder, recurrent, severe, no psychotic features Anxiety disorder, unspecified Depression Substance use disorder; marijuana, mild Asymptomatic Covid, symptoms begain about 12 days ago. DVT prophylaxis: Ambulation Plan Continue 1:1 sitter with suicide precautions Continue vitamins Psychiatry consultation Continue all other supportive care. Discharge one cleared by psychiatry Pt will need to be petitioned and certed if she tries to leave AMA per psychiatry recommendations Objective - Vital Signs Vital signs: Vital Signs Temp 98.5 F 10/13/21 06:00 Pulse 77 10/13/21 06:00 Resp 17 10/13/21 06:00 BP 105/70 10/13/21 06:00 Pulse Ox 97 10/13/21 06:00 Intake & Output 10/12/21 10/13/21 10/13/21 18:59 06:59 18:59 Intake Total 450 300 Balance 450 300 Intake: Oral 450 300 Other: # Voids 4 2 - Labs CBC & Chem 7: 10/11/21 05:08 10/11/21 05:08 Assessment and Plan Time with Patient: Greater than 30
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
[2021-10-14] MEDS: ZINC SULFATE 220 MG CAP PO SCH (07:28)
[2021-10-14] MEDS: SERTRALINE 100 MG TAB PO SCH (07:28)
[2021-10-14] MEDS: ASCORBIC ACID 500 MG TAB PO SCH (07:28)
[2021-10-14 11:33] VITALS: RESP 18
--- NOTE | 2021-10-14 11:37 | P.DS ---
Providers Date of admission: 10/11/21 15:37 Attending physician: Frank Hawkins Consults: 10/11/21 15:36 Consult Physician Routine Consulting Provider: Travon Jauregui Consult Reason/Comments: depression , SI Do you want consulting provider notified?: Already Contacted Primary care physician: Calvin Young [facility] Course: Patient is a pleasant 31-year-old female came in because of possible suicidal ideations and patient was quite a bit depressed and she believes that her sertraline dosage to be increased. Patient has been on this dose for a while. Patient is bit tearful. Although denied any present suicidal ideations. Patient was diagnosed with COVID-19 on september her symptoms resolved last . Patient is asymptomatic regarding coronary and will not require any steroids at this time. Patient is being admitted to medical floor as a mental health unit cannot accommodate positive Covid patient's. Although patient is probably not infectious at this time. Her Covid PCR is expected to be positive even if she is not infective. 10/12/2021 Patient denies suicidal ideation during my examination. She feels that her current mental status is situational and she would ultimately an increase in her antidepressant medication. She was evaluated by psychiatry services today who did increase her zoloft to 100 mg daily, as well as recommends inpatient psychiatric admission, however she is unable for admission due to positive COVID PCR. Psychiatry is recommending patient to medical floor until she is cleared for discharge from psychiatry will follow-up daily. Added Haldol and Ativan for agitation and anxiety trazodone at bedtime for insomnia. Continue one-to-one sitter for safety. Patient was petitioned by police, the patient may not leave AMA at this time as recommended by psychiatry. Vital signs stable today; afebrile, BP 109/73, 97% on room air. 10/13/2021 Patient resting in bed. She is quite agitated that she is still hospitalized that she doesn't understand why, she states that the statements that she made were situational and anybody who knew the situation would understand why she said what she said. Currently her boyfriend and has left the house, she did have to give him a 30 day eviction notice. Her parents own the home, but do not live there. Currently her parents have her 1-year-old son however she is unsure and she states that the boyfriend would be able to get access to the son. She denies there being a safety issue however she states that there is conflict between her and her ex-boyfriend. Patient is not currently working, she states that her ex-boyfriend wanted her to be a [id number] mom and she felt like a loss of identity after becoming mother and suffered from depression. 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 Patient really does not seem to understand the severity of the statements that she made regards to her suicidal ideation. She states that she never had an intent and she would never follow through with the act. She will be pursuing therapy after discharge and feels that she has struggled with depression for so long that she thinks her coping mechanisms are ok. Pending reevaluation by Psychiatry services today. Sertraline increased 100 mg by mouth daily and continue with one-to-one sitter for now. 10/14/2021 and is clinically doing well and can be discharged from medical perspective to awaiting clearance from psychiatry. We'll request a psychiatry started to do the discharge psychiatry medications as well. Rest of the medication reconciliation was done. Patient is hemodiluted is stable and asymptomatic regarding Covid perspective. Patient's boyfriend will have a meeting with psychiatry as before he can clear for discharge. ROS Constitutional: Denied any fatigue denied any fever. Cardio vascular: denied any chest pain, palpitations Gastrointestinal denied any nausea vomiting Pulmonary: Denied any shortness of breath cough Neurologic denied any new focal deficits All inpatient medications were reviewed and appropriate changes in these medications as dictated in the interval history and assessment and plan. PHYSICAL EXAMINATION: GENERAL: The patient is alert and oriented x3, not in any acute distress. Well developed, well nourished. HEENT: Pupils are round and equally reacting to light. EOMI. No scleral icterus. No conjunctival pallor. Normocephalic, atraumatic. No pharyngeal erythema. No thyromegaly. CARDIOVASCULAR: S1 and S2 present. No murmurs, rubs, or gallops. PULMONARY: Chest is clear to auscultation, no wheezing or crackles. ABDOMEN: Soft, nontender, nondistended, normoactive bowel sounds. No palpable organomegaly. MUSCULOSKELETAL: No joint swelling or deformity. EXTREMITIES: No cyanosis, clubbing, or pedal edema. NEUROLOGICAL: Gross neurological examination did not reveal any focal deficits. SKIN: No rashes. Assessment and plan Assessment Major Depressive Disorder, recurrent, severe, no psychotic features Anxiety disorder, unspecified Depression Substance use disorder; marijuana, mild Asymptomatic Covid, patient is symptomology is more than 2 weeks and will not require any isolation DVT prophylaxis: Ambulation Patient Condition at Discharge: Fair Plan - Discharge Summary New Discharge Prescriptions: New Zinc Sulfate [Orazinc] 220 mg PO DAILY cap Acetaminophen Tab [Tylenol] 650 mg PO Q6HR PRN tab PRN Reason: Mild Pain Or Fever > 100.5 Ascorbic Acid [Vitamin C] 500 mg PO BID tab No Action Sertraline [Zoloft] 50 mg PO DAILY Discharge Medication List Sertraline [Zoloft] 50 mg PO DAILY 10/11/21 [History] Acetaminophen Tab [Tylenol] 650 mg PO Q6HR PRN tab 10/12/21 [Rx] Ascorbic Acid [Vitamin C] 500 mg PO BID tab 10/12/21 [Rx] Zinc Sulfate [Orazinc] 220 mg PO DAILY cap 10/12/21 [Rx] Follow up Appointment(s)/Referral(s): [facility] [Outside] - 1 Week Calvin Young MD [Primary Care Provider] - 3 Days Discharge Disposition: HOME SELF-CARE
[2021-10-14 14:25] VITALS: BP 107/63; PULSE 85; TEMP 98.3
--- NOTE | 2021-10-14 16:28 | CONS ---
CONSULTATION DATE OF SERVICE: 10/14/2021. CHIEF COMPLAINT: The patient was depressed. She had made suicide statements about cutting an artery with a knife. She was admitted on petition. INTERVAL HISTORY: Patient has been doing fair overall. She feels that her mood is improved and that she has a better outlook on things. She said that again she has no intent, thoughts or plans regarding self-harm or suicide. We had a conference telephone call with her boyfriend. The boyfriend indicated that the issues that precipitated her coming to the hospital were that the two of them had a tense interchange between them. He said that this has been an ongoing issue for quite a while and that he notes that both he and the patient can struggle with anger in their interaction. He stated that his understanding is that they have ended their relationship and he is just in the process of moving a few more things out of the house where they have been living. He said that the petition that he completed was precipitated by interactions the patient had with her parents. Through the course of these events apparently the interaction with parents escalated the level of distress and led mother to calling police. The boyfriend stated he completed the petition primarily encouraged by others. He also noted that he was quite distressed about the patient two different times making statements about suicide, which was especially stressful to him, given that he has lost two friends from suicide in the recent past. Between the patient and her boyfriend, they indicated that they believe they could have a reasonable conversation and interaction in the direction of managing care for their [id number]. The boyfriend was not able to identify any immediate risk factors that might confront the patient when she returns home. The patient stated she will have to address the issues of living alone and currently not working, stating that work had been a positive for her and something she intends to get back to fairly quickly. The boyfriend stated he could adjust his schedule as needed so that she can get back to work and also be able to manage childcare. After the conversation the patient noted stress she has in interactions with her parents, especially her father, who can be harsh and judgemental. She asked for guidance on how she might handle interactions she has with him in a more productive manner. She tolerates her psychotropic medications. MENTAL STATUS: Patient was sitting up in bed. She gave good eye contact. She answered questions appropriately. Her thoughts were clear and coherent. She was spontaneous and interactive. Her affect was somewhat intense at times. It was noteworthy that at some points in the interview she smiled and seemed to present with a good mood, though she very easily could well up with tears. At one point she became angry, stating, "I have never been told by a professional that I am stupid." That statement came from a point in our discussion when she called herself "stupid" and I repeated the statement to her. She was able to process the issues in a reasonable way. She was moderately distressed at times. There was no indication of thought disorder. She made no indication of thoughts of harm. She was oriented and alert. Insight was fair. She was able to appropriately process some of the issues causing her significant distress. ASSESSMENT: I will continue the current diagnosis and treatment plan. The patient will continue Zoloft 100 mg a day. She is stable and able to be discharged at this time from a psychiatric standpoint. I saw her with the social welfare research worker and it has been set up that she will be able to call on Monday to set up an intake through [facility]. The patient was very clear about her interest and intention towards engaging in therapy. She has a stable housing situation. She feels she has reasonable support from her parents. SAM / TAMEKA: [id number] /
== END 2021-10-14 16:15 | disposition home or self-care (01) ==
LOC: EC 01:18 → 4SSUR 15:37
PROVIDERS: ADMIT Internal Medicine; ATTEND Internal Medicine
DX: F33.2 Major depressive disorder, recurrent severe without psychotic features (principal); U07.1 COVID-19; F43.23 Adjustment disorder with mixed anxiety and depressed mood; O99.345 Other mental disorders complicating the puerperium; G47.00 Insomnia, unspecified; F53.0 Postpartum depression; Z79.899 Other long term (current) drug therapy; Z88.5 Allergy status to narcotic agent; Z88.0 Allergy status to penicillin; Z91.040 Latex allergy status; Z74.3 Need for continuous supervision; Z71.9 Counseling, unspecified; Z56.0 Unemployment, unspecified; Z63.0 Problems in relationship with spouse or partner; Z81.8 Family history of other mental and behavioral disorders
CPT/HCPCS: 82075; 99285; 36415; 80053; 85025; 81001; 81025; 80306; 87635; G0378 ×4